=== PATIENT | male | born 1990 | race Caucasian/White ===

== ENCOUNTER 2024-12-03 21:33 | Emergency (ER) | payer BC, SELFPAY ==
--- OUTSIDE RECORDS SUMMARY | 2024-12-03 21:36 | XMS_ITS | Clinical Summary ---
Author Organization [facility] Address [address] [place] [address] Care Team Providers Care Prop And Effects Designer Name Role Phone Minoo Lowery MD Primary Care Provider + [phone] Source Comments You are receiving this document as you are listed as the primary care provider,follow-up provider, or the patient has been referred to you for consultation.This is in compliance with the Medicare and[facility] E[facility] Incentive Program,which states Providers who transition their patient to another setting of careor provider of care or refers their patient to another provider of care shouldprovide summary care record for each transition of care or referral. [facility] Allergies No known active allergies Medications No known medications Active Problems No known active problems Immunizations Immunization Administration Dates Next Due DTP 07/31/1990,,1988,1988 HepB Adult (Engerix-B, 20+ y rs, 3 dose series) 05/30/1998,10/09/1997,08/14/1997 Hib (ActHIB) 11/03/1989 MMR 11/03/1989 Mumps 08/14/1997 OPV, Trivalent (Orimune or tOPV) 07/31/1990,11/13,1988 Social History Tobacco Use Types Packs/Day Years Used Date Smoking Tobacco: Never Smokeless Tobacco: Never Tobacco Cessation:Counseling Given: Not Answered Sex and Gender Information Value Date Recorded Sex Assigned at Not on file Legal Sex Male 4:58 AM CDT Gender Identity Not on file Sexual Orientation Not on file Last Filed Vital Signs Vital Sign Reading Time Taken Comments Blood Pressure 118/66 02/21/2024 11:23 AM CDT Pulse 115 02/21/2024 11:23 AM CDT Temperature 38 C (100.4 F) 02/21/2024 11:23 AM CDT Respiratory Rate 20 02/21/2024 11:23 AM CDT Oxygen Saturation 99% 02/21/2024 11:23 AM CDT Inhaled Oxygen Concentration - - Weight - - Height - - Body Mass Index - - Plan of Treatment Health Maintenance Due Date Last Done Comments Hep C Screening (Preventive Services) 1988 IPV (Polio) Vaccine (4 of 4 - 4-dose series) 1992 07/31/1990, 1988, 1988 DTaP/Tdap/Td Vaccine (6 - Tdap) 01/18/2003 01/17/2003, 07/31/1990, 01/31/1989, Additional history exists Adult Preventive Visit 2006 Cholesterol 07/31/2023 COVID-19 Vaccine ( season) 2024 Influenza Vaccine (#1) 2025 Zoster/Shingles Vaccine (1 of 2) 2038 Hib Vaccine Completed 11/03/1989 HepB Vaccine Completed 05/30/1998, 09/14, 08/14/1997 HIV Screening (Preventive Services) Completed 02/03/2021 HPV Vaccine Aged Out No longer eligi ble based on patient's age to complete this topic HepA Vaccine Aged Out No longer eligi ble based on patient's age to complete this topic MCV4 Vaccine Aged Out No longer eligi ble based on patient's age to complete this topic Meningococcal B Vaccine Aged Out No l onger eligible based on patient's age to complete this topic Pneumococcal Vaccine Aged Out No long er eligible based on patient's age to complete this topic Insurance [place] [address] Care Teams Prop And Effects Designer Relationship Specialty [place] [address] [place] [id number] PCP - General 08/17/10
--- OUTSIDE RECORDS SUMMARY | 2024-12-03 21:36 | XMS_ITS | Clinical Summary ---
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 Gender Identity Not on file Sexual Orientation Not on file Last Filed Vital Signs Vital Sign Reading Time Taken Comments Blood Pressure 110/68 02/25/2024 10:35 PM CDT Pulse 89 02/25/2024 10:35 PM CDT Temperature 36.6 C (97.8 F) 02/25/2024 7:05 PM CDT Respiratory Rate 16 02/25/2024 10:35 PM CDT Oxygen Saturation 99% 02/25/2024 10:35 PM CDT Inhaled Oxygen Concentration - - Weight 77.1 kg (170 lb) 02/25/2016 9:35 AM CDT Height - - Body Mass Index - - Plan of Treatment Health Maintenance Due Date Last Done Comments ADVANCE CARE PLANNING 1988 ANNUAL REVIEW OF HM ORDERS 1988 YEARLY PREVENTIVE VISIT 07/31/1991 DTAP/TDAP/TD VACCINE (6 - Tdap) 01/18/2003 01/17/2003, 07/31/1990, 01/31/1989, Additional history exists COVID-19 VACCINE ( season) 2024 PHQ-2 (once per calendar year) 2024 INFLUENZA VACCINE (#1) 2025 DIABETES SCREENING 02/24/2027 02/25/2024 ZOSTER VACCINE (1 of 2) 2038 HEPATITIS B VACCINE Completed 11/03/2001, 01/06/2001, 05/30/1998, Additional history exists HEPATITIS C SCREENING Completed 02/03/2021 HIV SCREENING Completed 02/03/2021 HPV VACCINE Aged Out No longer eligi ble based on patient's age to complete this topic MENINGITIS VACCINE Aged Out No longer eligible based on patient's age to complete this topic PNEUMOCOCCAL VACCINE: PEDIATRICS (0 to 5 YEARS) AND AT-RISK PATIENTS (6 to 49 YEARS) Aged Out No longer eligible based on patient's age to complete this topic Procedures Procedure Name Priority Date/Time Associated Diagnosis Comments COMPREHENSIVE METABOLIC PANEL STAT 02/25/2024 7:22 PM CDT from Last 3 Months or Most Recently Relevant to Health Maintenance Results * (ABNORMAL) Comprehensive metabolic panel (02/25/2024 7:22 PM CDT) Sodium 136 135 - 145 mmol/L 02/25/2024 7:50 PM CDT [facility] Potassium 4.2 3.4 - 5.3 mmol/L 02/25/2024 7:50 PM CDT [facility] Carbon Dioxide (CO2) 25 22 - 29 mmol/L 02/25/2024 7:50 PM CDT [facility] Anion Gap 12 7 - 15 mmol/L 02/25/2024 7:50 PM CDT [facility] Urea Nitrogen 11.8 6.0 - 20.0 mg/dL 02/25/2024 7:50 PM CDT [facility] Creatinine 1.23(H) 0.67 - 1.17 mg/dL 02/25/2024 7:50 PM CDT [facility] GFR Estimate 79 >60 mL/min/1.7 3m2 02/25/2024 7:50 PM CDT [facility] Comment:eGFR calculated usin 2020 CKD-EPI equation. Calcium 9.3 8.8 - 10.4 mg/dL 02/25/2024 7:50 PM CDT [facility] Comment:Reference intervals for this test were updated on 11/29/2023 to reflect our healthy population more accurately. There may be differences in the flagging of prior results with similar values performed with this method. Those prior results can be interpreted in the context of the updated reference intervals. Chloride 99 98 - 107 mmol/L 02/25/2024 7:50 PM CDT [facility] Glucose 93 70 - 99 mg/dL 02/25/2024 7:50 PM CDT [facility] Alkaline Phosphatase 75 40 - 150 U/L 02/25/2024 7:50 PM CDT [facility] AST 20 0 - 45 U/L 02/25/2024 7:50 PM CDT [facility] ALT 21 0 - 70 U/L 02/25/2024 7:50 PM CDT [facility] Protein Total 7.6 6.4 - 8.3 g/dL 02/25/2024 7:50 PM CDT [facility] Albumin 4.8 3.5 - 5.2 g/dL 02/25/2024 7:50 PM CDT [facility] Bilirubin Total 0.4 <=1.2 mg/dL 02/25/2024 7:50 PM CDT [facility] Blood STRUCTURE OF LEFT UPPER LIMB / Unknown Venipuncture / Unknown 02/25/2024 7:22 PM CDT 02/25/2024 7:26 PM CDT us Rolando Tam MD LAB - BLOOD ORDERABLES Final Result LABORATORY [facility] [address] [facility] (1st floor, no room number) [place] [address], [facility] from Last 3 Months or Most Recently Relevant to Health Maintenance Insurance BC OUT OF STATE [facility] OUT OF STATE Care Teams Director Of Medical Services Relationship Specialty Start Date End Date [facility] [facility] [address] [place], [place] [address] PCP - General 02/25/24
--- OUTSIDE RECORDS SUMMARY | 2024-12-03 21:36 | XMS_ITS | Clinical Summary ---
Author Organization [facility] Address [address] [place] [address] Care Team Providers Care Level Vial Sealer Name Role Phone Esequiel Geller MD Primary Care Provider [phone] Allergies No known active allergies Medications ibuprofen (ADVIL; MOTRIN) 200 mg tablet Take 400 mg by mouth every 6 hours if needed (aches/headaches) . Active acetaminophen (TYLENOL EXTRA STRENGTH) 500 mg tablet Take 500 mg by mouth every 6 hours if needed (aches/headaches) . Max acetaminophen dose: 4000mg in 24 hrs. Active omeprazole (PRILOSEC) 40 mg Delayed-Release capsuleIndicati ons:Gastroesoph ageal reflux disease, esophagitis presence not specified Take 1 capsule by mouth once daily. Take 30-60 minutes before a meal/food once a day. 90 capsule 3 0 Active albuterol HFA 90 mcg/actuation inhaler Inhale 2 Puffs by mouth 4 times daily if needed. 0 0 Active cyclobenzaprine (FLEXERIL) 5 mg tabletIndicatio ns:Acute midline low back pain without sciatica Take 1 Tablet (5 mg) by mouth at bedtime if needed for Muscle Spasm. 30 Tablet 1 Active Active Problems Problem Noted Date Diagnosed Date GERD (gastroesophageal reflux disease) 0 Anxiety 09/20/2019 Irritable bowel syndrome wit h both constipation and diarrhea 09/20/2019 Transaminitis 09/20/2019 Chest pain 09/19/2019 Troponin level elevated 09/19/2019 Unstable angina 09/19/2019 Resolved Problems Problem Noted Date Diagnosed Date Resolved Date UPPER RESPIRATORY INFECTION - ACUTE 08/05/2004 09/19/2019 SORE THROAT 08/05/2004 09/19/2019 WARTS - UNSPECIFIED 07/17/2003 09/19/19 20 ATTENTION DEFICIT DISORDER W ITHOUT HYPERACTIVITY 01/17/2003 09/20/2019 Cough 01/17/2001 09/19/2019 Immunizations Immunization Administration Dates Next Due DTP 07/31/1990,01/31/1989,1988 ,1988 HIB PRP-OMP (PedvaxHIB) 11/03/1989 Hepatitis B (Peds) 11/03/2001,01/06/2001, 998 MMR 08/14/1997,11/03/1989 Oral Polio Vaccine 07/31/1990,1988, 989 Td (Age >=7 Years) 01/17/2003 Varicella Vaccine 05/16/1989 Family History Medical History Relation Name Comments Good Health Father Lymphoma Mother recovered Genetic Other MGM of ang iosarcoma. Good Health Sister Other No Family History no prematu re heart disease Relation Name Status Comments Father Alive Mother Alive Other Sister Alive Social History Tobacco Use Types Packs/Day Years Used Date Smoking Tobacco: Never Smokeless Tobacco: Never Tobacco Cessation:Counseling Given: Yes Alcohol Use Standard Drinks/Week Comments No 0 (1 standard drink = 0.6 oz pur e alcohol) Alcoholic Drinks/day: 0 Social Connections Answer Date Recorded Frequency of Communication with Friends and Fami ly Not on file 05/16/2021 Financial Resource Strain Answer Date R ecorded Difficulty of Paying Living Expenses Not on file 05/16/2021 Difficulty of Paying Living Expenses Not on file 05/16/2021 Sex and Gender Information Value Date Recorded Sex Assigned at Not on file 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 Gender Identity Not on file Sexual Orientation Not on file Obstetrics History Last Filed Vital Signs Vital Sign Reading Time Taken Comments Blood Pressure 138/90 02/03/2021 7:44 AM CDT Pulse 84 02/03/2021 7:44 AM CDT Temperature 37 C (98.6 F) 02/03/2021 7:44 AM CDT Respiratory Rate 16 09/21/2019 11:36 AM CDT Oxygen Saturation 99% 02/03/2021 7:44 AM CDT Inhaled Oxygen Concentration - - Weight 83 kg (183 lb) 02/03/2021 7:44 AM CDT Height 175.3 cm (5' 9) 10/30/2019 10:40 AM CDT Body Mass Index 27.02 10/30/2019 10:40 AM CDT Plan of Treatment Health Maintenance Due Date Last Done Comments Depression screening for age 12+ 2000 Tetanus booster 01/17/2013 01/17/2003 BMI (ht and wt on same day) for age 18+ 10/29/2020 10/30/2019, 10/12/2019 COVID-19 vaccine series (2023- season) 2024 Lipids for age 35-44 09/19/2024 09/20/2019 Influenza Vaccine (#1) 2025 Hepatitis B series for 19+ Completed 11/03, 01/06/2001, 08/15/1997 HIV for age 15-65 Completed 02/03/2021 Hepatitis C screening for ag e 18-79 Completed 02/03/2021 Pneumococcal series for age 6-49 Aged Out No longer eligible b ased on patient's age to complete this topic Procedures Procedure Name Priority Date/Time Associated Diagnosis Comments ANTI HIV 1/2 Add On 02/03/2021 7:31 AM CDT Screen for STD (sexually transmitted disease) ANTI HCV Add On 02/03/2021 7:31 AM CDT Screen for STD (sexually transmitted disease) LIPID PANEL Early AM 09/20/2019 5:58 AM CDT from Last 3 Months or Most Recently Relevant to Health Maintenance Results * ANTI HCV (02/03/2021 7:31 AM CDT) HEPATITIS C ANTIBODY Non-React ld Non-React ld 02/03/2021 7:32 PM CDT [facility] Comment:Antibodies to HCV no t detected; does not exclude the possibility of exposure to HCV. Blood BLOOD SPECIMEN / Unknown Venipuncture / Unknown 02/03/2021 7:31 AM CDT 02/03/2021 7:31 AM CDT Ayse Mcgill VALUATION MANAGER SEND OUTS Final Res ult [facility] [address] [place] [address], [place] * ANTI HIV 1/2 (02/03/2021 7:31 AM CDT) HIV-1/HIV-2 ANTIBODY Non-Reacti ve Non-Reacti ve 02/03/2021 7:[address] [facility] Comment:HIV-1 p24 and HIV-1/ HIV-2 Ab not detected. Blood BLOOD SPECIMEN / Unknown Venipuncture / Unknown 02/03/2021 7:31 AM CDT 02/03/2021 7:31 AM CDT us Ayse Mcgill NP SEND OUTS Final Res t Performing Organization Address City/[facility]/ZIP Co de Phone Number [facility] [address] [place] [address], [place] * (ABNORMAL) Lipid Panel - In AM (09/20/2019 5:58 AM CDT) CHOLESTEROL,TOTAL 236(H) 100 - 199 mg/dL 09/20/2019 7:06 AM CDT [facility] TRIGLYCERIDES 320(H) <150 mg/dL 09/20/2019 7:[address] [facility] HDL CHOLESTEROL 33(L) >40 mg/dL 0 7:06 AM CDT [facility] NON-HDL CHOLESTEROL 203(H) <145 mg/dl 09/20/2019 7:[address] [facility] CHOL/HDL RATIO 7.15(H) <4.50 09/20/2019 7:[address] [facility] LDL CHOLESTEROL 139(H) <=130 mg/dL 09/20/2019 7:06 AM CDT [facility] PROVIDER ORDERED STATUS RANDOM 09/20/2019 7:06 AM CDT [facility] Blood BLOOD SPECIMEN / Unknown Venipuncture / Unknown 09/20/2019 5:58 AM CDT 09/20/2019 6:31 AM CDT us Bear Wilhelm MD CHEMISTRY Final Result [facility] [address] [place] [address], [place] from Last 3 Months or Most Recently Relevant to Health Maintenance Advance Directives * Full Code (Latest Code Status on File) Date Activated Date Inactivated Comments 09/19/2019 9:21 PM 09/21/2019 8:18 PM Care Teams Level Vial Sealer Relationship Specialty Start Date End Date Esequiel Geller MD [address] [place] [address] PCP - General Family Practice 12/16/16
--- OUTSIDE RECORDS SUMMARY | 2024-12-03 21:36 | XMS_ITS | Patient Health Record ---
Author Organization [facility] Address [address] [place] [address] Care Team Providers Care Engineering Production Liaison Name Role Phone Ana Lilia TESFAYEAugust Primary Care Provider WILMA Villalta Unavailable [phone] Reason For Referral No Information Medications Medication SIG (Take, Route, Frequency, Duration) Notes Start Date End Date Status Ibuprofen Active Problems Problem Type SNOMED Code ICD Code Onset Dates Problem Status W/U Status Risk Notes Problem Chronic rhinitis (84617106) Rhinitis, chronic (472.0) Active confirmed Problem Dysfunction of bilateral eustachian tubes (621333279451434 0) Other specified disorders of Eustachian tube, bilateral (H69.83) Active confirmed Problem Pain of ear (finding) (547941484) Otalgia, unspecified ear (H92.09) Active confirmed Problem Deviated nasal septum (723641415) Deviated nasal septum (J34.2) Active confirmed Problem Hypertrophy of nasal turbinates (83294230) Hypertrophy, nasal, turbinate (J34.3) Active confirmed Plan Of Treatment No Information Insurance Providers Payer Name Payer Address Payer Phone Subscriber Number Group Number Insured Name Patient Relationship to Insured Coverage Start Date Coverage End Date Adeline [facility] PRIOR TO [address] [place] [id number] Kurt Enriquez Self - patient is the insured
[2024-12-03 21:37] VITALS: BP 135/98; PULSE 75; RESP 18; TEMP 36.7; O2SAT 97; BMI 25.8
--- NOTE | 2024-12-03 22:05 | ED_ITS ---
HPI - General Adult General Chief complaint: Extremity Pain/Injury, Upper Stated complaint: swollen arm Time Seen by Provider: 12/03/24 21:44 History of Present Illness HPI narrative: This 34-year-old male comes in stating that he was exercising in the gym and developed swelling in his left forearm. He did not report any pain related to this but states that he felt some altered sensation at the same time. He states that the swelling now has dissipated and is back to normal and yet he still feels a little bit of altered sensation. He states that he has been able to exercise without symptoms like this in the past. He states that he did not have any injury event and was not doing excessively heavy lifting. Related Data Previous Rx's ?Medication ?Instructions ?Recorded methylprednisolone 4 mg tablets in See Rx Instructions PO .COMPLEX 12/03/24 a dose pack (Medrol (Onel)) #21 ea Allergies Allergy/AdvReac Type Severity Reaction Status Date / Time No Known Drug Allergies Allergy Verified 06/08/23 16:18 Review of Systems Status of ROS: Reports: 10 or more systems reviewed and unremarkable except as noted in History and below Narrative: Constitutional: No fevers, no weight gain or loss. Eyes: No discharge. No vision changes. HENT: No congestion, no sore throat, no ear pain. Cardiovascular: No chest pain, no palpitations. Respiratory: No shortness of breath, no wheezes, no cough. Gastrointestinal: No vomiting, no diarrhea. He does report some right lower quadrant abdominal pain that is reproducible with certain physical maneuvers he wonders if he might have a hernia. Genitourinary: No dysuria, no hematuria. Musculoskeletal: Normal range of motion. Skin: No rashes, no pruritis. Neurological: No dizziness, weakness, sensory change, speech change. Endo/Heme/Allergies: No bruising or bleeding. No polydipsia. Pysch: no suicidality, no anxiety, no insomnia. All other systems reviewed and are negative. [facility] Medical History (Updated 12/03/24 @ 22:09 by Leroy Mart MD) Tonsillitis ?J03.90 - Acute tonsillitis, unspecified (ICD-10) Exam Narrative: Exam Narrative: Constitutional: Well-developed, well-nourished, no acute distress. HEENT: Normocephalic, atraumatic. Neck: Normal range of motion. Nontender. Supple. Heart: Regular. No murmurs. Normal rate. Intact distal pulses. Lungs: Clear to auscultation. No chest discomfort. No wheezes, rhonchi, or rales. Abdomen: Normal bowel sounds. No rebound tenderness. No palpable herniation in the right lower inguinal region when bearing down. Genitalia: Deferred. Back: No midline tenderness. Normal range of motion. Extremities: Normal range of motion. No injury. His left forearm appears exactly the same size as the right forearm. Skin: Intact. No rash. Warm. No erythema or pallor. Neurologic: No altered sensation. No weakness. Alert and oriented. Spurling's test is negative. Psychiatric: No suicidality. No anxiety or depression. No insomnia. Nursing notes and vitals signs are reviewed. Const: Vital Signs, click to edit/add: Vital Signs - 24 hr 12/03/24 21:37 Temperature 98.1 F Pulse Rate [Pulse Oximeter] 75 Respiratory Rate 18 [facility] 135/98 H Pulse Oximetry 97 Oxygen Delivery Me thod Room Air Course Vital Signs Vital signs: Initial Vital Signs Temperature 98.1 F 12/03/24 21:37 Temperature Source Temporal Artery Scan 12/03/24 21:37 Pulse Rate 75 12/03/24 21:37 Respiratory Rate 18 12/03/24 21:37 Blood Pressure 135/98 H 12/03/24 21:37 Blood Pressure Mean 110 H 12/03/24 21:37 Blood Pressure Position Sitting 12/03/24 21:37 Pulse Oximetry 97 12/03/24 21:37 Oxygen Delivery Method Room Air 12/03/24 21:37 Vital Signs Temperature 98.1 F 12/03/24 21:37 Pulse Rate 75 12/03/24 21:37 Respiratory Rate 18 12/03/24 21:37 Blood Pressure 135/98 H 12/03/24 21:37 Pulse Oximetry 97 12/03/24 21:37 Oxygen Delivery Method Room Air 12/03/24 21:37 Temperature 98.1 F 12/03/24 21:37 Pulse Rate 75 12/03/24 21:37 Respiratory Rate 18 12/03/24 21:37 Blood Pressure 135/98 H 12/03/24 21:37 Pulse Oximetry 97 12/03/24 21:37 Oxygen Delivery Method Room Air 12/03/24 21:37 Medical Decision Making MDM Narrative Medical decision making narrative: This patient comes in reporting swelling in his left forearm that has now dissipated. He arrives with normal vital signs and is exam is normal. He states that he feels a little bit of tingling sensation in his left arm. I did discuss lab and imaging options but indicated reassurance with his resolution of symptoms. He is okay to be discharged home. He is not showing any signs of compartment syndrome or injury. He is not showing any neurologic deficits. I did provide a prescription for Medrol Dosepak. Discharge Plan Discharge Clinical Impression: Feared condition not demonstrated Patient Disposition: Home, Self-Care Condition: Improved Additional Instructions: Take medication as prescribed. Increase activity as tolerated. Follow up with MD return if symptoms are recurrent or worsening. Prescriptions: New methylprednisolone [Medrol (Onel)] 4 mg tablets,dose pack See Rx Instructions .ROUTE .COMPLEX Qty: 21 0RF Rx Instructions: orally per package directions Follow Up/Referrals: Esequiel Geller MD [Primary Care Provider, Family Practice] Stand Alone Forms: [employer] Info Instructions
[2024-12-03 22:15] VITALS: BP 125/74; PULSE 70; RESP 18; TEMP 36.7; O2SAT 97
== END 2024-12-03 22:16 | disposition home or self-care (01) ==
LOC: ED 22:15
PROVIDERS: Emergency Provider Emergency Medicine Emergency Medical Services; PCP Family Medicine
DX: R22.32 Localized swelling, mass and lump, left upper limb (principal); Z71.1 Person with feared health complaint in whom no diagnosis is made
CPT/HCPCS: 99283; 99284